=== PATIENT | male | born 1990 | race African-American/Black ===

== ENCOUNTER 2021-09-12 11:03 | Emergency (ER) | payer OTHER ==
[~2021-09-12] VITALS: Ht 177.8 cm; Wt 77.1 kg
[2021-09-12] MEDS ORDERED: ONDANSETRON ODT4 MG PO (15:16)
[2021-09-12 15:38] VITALS: BP 144/72
== END 2021-09-12 15:40 ==
LOC: M.ERS 11:03
DX: S00.03XA Contusion of scalp, initial encounter (principal); W22.8XXA Striking against or struck by other objects, initial encounter; Y93.89 Activity, other specified; Y92.89 Other specified places as the place of occurrence of the external cause; Y99.8 Other external cause status

== ENCOUNTER 2021-09-13 13:50 | Emergency (ER) | payer OTHER ==
[~2021-09-13] VITALS: Ht 177.8 cm; Wt 77.1 kg
[~2021-09-13 13:50] MED LIST: ONDANSETRON ODT4 MG PO
[2021-09-13 15:44] LABS: ABSOLUTE LYMPHOCYTES 1.6 thou/uL (0.8-5.3); ABSOLUTE MONOCYTES 0.8 thou/uL (0.0-1.2); BASOPHILS 0.7 %; EOSINOPHILS 0.3 %; HEMATOCRIT 48.1 % (42.0-52.0); HEMOGLOBIN 16.9 gm/dL (14.0-18.0); LYMPHOCYTES 21.4 %; MCH 31.5 pg (26.0-34.0); MCHC 35.1 g/dL (28.0-37.0); MCV 89.8 fL (80.0-100.0); MONOCYTES 10.3 %; MPV 7.8 fl. (7.2-11.1); NUCLEATED RBCS 0 /100WBC; PLATELET COUNT* 251 thou/uL (150-400); POLYS 67.3 %; RBC 5.35 mil/uL (4.50-6.00); RDW-CV 13.5 % (10.5-14.5); WBC 7.4 thou/uL (4.0-11.0)
[2021-09-13 15:45] LABS: CALCIUM 8.9 mg/dL (8.5-10.1); CREATININE 1.2 mg/dL (0.6-1.3); POTASSIUM 3.9 mmol/L (3.5-5.1)
[2021-09-13 15:49] LABS: ALBUMIN 4.4 g/dL (3.4-5.0); TOTAL BILIRUBIN 1.4 mg/dL (<0.1-1.0); TOTAL PROTEIN 7.8 g/dL (6.4-8.2)
[2021-09-13 16:49] VITALS: BP 141/102
== END 2021-09-13 16:52 | disposition home or self-care (01) ==
LOC: M.ERS 13:50
PROVIDERS: Physician Assistant
DX: R10.13 Epigastric pain (principal)

== ENCOUNTER 2021-09-15 18:26 | Emergency (ER) | payer OTHER ==
[~2021-09-15] VITALS: Ht 177.8 cm; Wt 68.0 kg
[2021-09-15 19:14] LABS: ABSOLUTE LYMPHOCYTES 1.7 thou/uL (0.8-5.3); ABSOLUTE MONOCYTES 0.9 thou/uL (0.0-1.2); ABSOLUTE NEUTROPHILS 5.7 thou/uL (1.6-8.1); BASOPHILS 0.5 %; EOSINOPHILS 0.2 %; HEMATOCRIT 48.7 % (42.0-52.0); HEMOGLOBIN 17.3 gm/dL (14.0-18.0); LYMPHOCYTES 20.6 %; MCH 31.6 pg (26.0-34.0); MCHC 35.4 g/dL (28.0-37.0); MCV 89.1 fL (80.0-100.0); MONOCYTES 10.4 %; MPV 8.1 fl. (7.2-11.1); NUCLEATED RBCS 0 /100WBC; PLATELET COUNT* 304 thou/uL (150-400); POLYS 68.3 %; RBC 5.47 mil/uL (4.50-6.00); RDW-CV 13.2 % (10.5-14.5); WBC 8.4 thou/uL (4.0-11.0)
[2021-09-15 19:22] LABS: CALCIUM 9.5 mg/dL (8.5-10.1); CREATININE 1.3 mg/dL (0.6-1.3); POTASSIUM 3.8 mmol/L (3.5-5.1)
[2021-09-15 19:27] LABS: ALBUMIN 4.5 g/dL (3.4-5.0); MAGNESIUM 2.1 mg/dL (1.8-2.4); TOTAL BILIRUBIN 1.5 mg/dL (<0.1-1.0); TOTAL PROTEIN 8.1 g/dL (6.4-8.2)
[2021-09-15 20:22] LABS: AMP/METHAMP Negative (Negative); BARBITURATES Negative (Negative); BENZODIAZEPINES Negative (Negative); COCAINE Negative (Negative); METHADONE Negative (Negative); OPIATES Negative (Negative); PCP Negative (Negative); THC POSITIVE (Negative)
[2021-09-15 20:35] VITALS: BP 146/98
--- NOTE | 2021-09-16 16:07 | EKG ---
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: : [id number] Requested By: Yeyo Carias Order Number: [id number] MD: Aj Garza Measurements Intervals [place] Rate: 78 P: 85 VA: 105 QRS: 91 QRSD: 95 T: 56 QT: 386 QTc: 440 Interpretive Statements Sinus rhythm Atrial premature complex Short VA interval Borderline right axis deviation RSR' in V1 or V2, probably normal variant ST elev, probable normal early repol pattern No previous ECG available for comparison Electronically Signed On 09-16-2021 16:07:49 CDT by Aj Garza [email or web address] <ELECTRONICALLY SIGNED> By: Aj Garza MD, FACC 09/16/21 1607 [id number] Aj Garza MD, [facility] /EPI
== END 2021-09-15 20:35 ==
LOC: M.ERS 18:26
PROVIDERS: Emergency Medicine Emergency Medical Services; Physician Assistant
DX: R07.89 Other chest pain (principal); R10.13 Epigastric pain; R11.10 Vomiting, unspecified